=== PATIENT | male | born 1995 | race Caucasian/White ===

== ENCOUNTER 2018-11-23 20:21 | Emergency (ER) | payer SELFPAY ==
[~2018-11-23] VITALS: Ht 188 cm; Wt 79.0 kg
--- NOTE | 2018-11-23 20:42 | NUR ---
ATTEMPTED SI BEFORE WITH A PIECE OF GLASS, NO STITCHES. HE IS HOMELESS. HE JUST GOT OFF A [employer] BUS FROM [place], [place]. HE HAS NO REAL PLANS "I DON'T KNOW THE AREA HERE SO I CAME HERE." STATES HE HAS BEEN HOSPITALIZED FOR 5150 ABOUT 10 TIMES.
--- NOTE | 2018-11-23 21:07 | NUR ---
HE IS ALSEEP.
[2018-11-23 22:22] LABS: BASOPHILS # (AUTO) 0.1 X10'3 (0-0.2); BASOPHILS % (AUTO) 0.9 % (0-1); EOSINOPHILS # (AUTO) 0.3 X10'3 (0-0.9); HEMATOCRIT 38.6 % (42.0-52.0); LYMPHOCYTES # (AUTO) 3.5 X10'3 (1.1-4.8); LYMPHOCYTES % (AUTO) 27.4 % (21-51); MEAN CORPUSCULAR HGB CONC 33.6 g/dL (33.0-36.5); MEAN CORPUSCULAR VOLUME 89.1 FL (78-98); MEAN PLATELET VOLUME 7.4 FL (7.4-10.4); MONOCYTES # (AUTO) 0.8 X10'3 (0-0.9); MONOCYTES % (AUTO) 6.6 % (2-12); NEUTROPHILS % (AUTO) 63.1 % (42-75); PLATELET COUNT 348 X10'3 (140-440); RED BLOOD COUNT 4.33 X10'6 (4.70-6.10); RED CELL DISTRIBUTION WIDTH 13.6 % (11.5-14.5); WHITE BLOOD COUNT 12.6 X10'3 (4.5-11.0)
[2018-11-23 22:33] LABS: URINE AMPHETAMINE SCREEN NEGATIVE (Neg); URINE BARBITUATE SCREEN NEGATIVE (Neg); URINE BENZODIAZEPINES SCREEN NEGATIVE (Neg); URINE CANNABINOID SCREEN POSITIVE (Neg); URINE COCAINE SCREEN NEGATIVE (Neg); URINE METHADONE SCREEN NEGATIVE (Neg); URINE OPIATE SCREEN NEGATIVE (Neg); URINE PHENCYCLIDINE SCREEN NEGATIVE (Neg)
--- NOTE | 2018-11-23 22:34 | NUR ---
employment consultant collecting pt belongings. pt changed into green scrubs. he is cooperative, tired. oriented pt to unit. asked if he has any needs, requests water. will give to pt. he says he is tired
[2018-11-23 22:37] LABS: ALANINE AMINOTRANSFERASE 27 U/L (12-78); ALBUMIN 3.2 G/DL (3.4-5.0); ALBUMIN/GLOBULIN RATIO 0.9 (1.1-1.5); ALKALINE PHOSPHATASE 108 IU/L (46-116); ANION GAP 7 (8-16); ASPARTATE AMINO TRANSFERASE 11 U/L (10-37); BILIRUBIN,TOTAL 0.1 MG/DL (0.1-1.0); BLOOD UREA NITROGEN 16 MG/DL (7-18); BUN/CREATININE RATIO 19.8 (5.4-32.0); CALCIUM 8.4 MG/DL (8.5-10.1); CHLORIDE 106 MMOL/L (99-107); CREATININE 0.81 MG/DL (0.60-1.10); ETHANOL < 0.010 GM/DL (0.0-0.010); GLUCOSE 117 MG/DL (70-104); POTASSIUM 3.9 MMOL/L (3.5-5.1); SODIUM 143 MMOL/L (135-145); TOTAL CARBON DIOXIDE 29.6 MMOL/L (24-32); TOTAL PROTEIN 6.8 G/DL (6.4-8.2); eGFR > 90 ML/MIN
--- NOTE | 2018-11-23 23:25 | NUR ---
pt sleeping on lt side. resp even/unlabored
--- NOTE | 2018-11-24 02:25 | NUR ---
pt continues sleeping on back. resp even/unlabored
--- NOTE | 2018-11-24 05:24 | NUR ---
pt sleeping, snoring at times.
--- NOTE | 2018-11-24 06:00 | NUR ---
pt is currently sleeping
[2018-11-24 06:18] VITALS: BP 121/66
--- NOTE | 2018-11-24 08:00 | NUR ---
pt continues to sleep
--- NOTE | 2018-11-24 08:47 | NUR ---
UPDATED FACESHEET WAS FAXED TO [facility]
--- NOTE | 2018-11-24 09:31 | NUR ---
pt ambulated to the bathroom
--- NOTE | 2018-11-24 11:14 | NUR ---
pt resting in bed
--- NOTE | 2018-11-24 12:52 | NUR ---
pt is sleeping
== END 2018-11-24 13:31 ==
LOC: ER 20:22
DX: F32.9 Major depressive disorder, single episode, unspecified (principal); K08.89 Other specified disorders of teeth and supporting structures; F17.200 Nicotine dependence, unspecified, uncomplicated; F12.90 Cannabis use, unspecified, uncomplicated; F15.90 Other stimulant use, unspecified, uncomplicated
CPT/HCPCS: 36415; 80053; 80305; 80320; 85025; 99284

== ENCOUNTER 2018-11-24 16:08 | Emergency (ER) | payer SELFPAY ==
[~2018-11-24] VITALS: Ht 188 cm; Wt 80.0 kg
[2018-11-24 16:10] VITALS: BP 125/78
[2018-11-24] MEDS ORDERED: OLANZapine 2.5MG tablet PO STA (16:28)
== END 2018-11-24 17:08 | disposition home or self-care (01) ==
LOC: ER 16:09
DX: F32.9 Major depressive disorder, single episode, unspecified (principal); F20.9 Schizophrenia, unspecified; F12.90 Cannabis use, unspecified, uncomplicated; F15.90 Other stimulant use, unspecified, uncomplicated; Z56.0 Unemployment, unspecified; Z59.0 Homelessness; Z88.0 Allergy status to penicillin; Z88.1 Allergy status to other antibiotic agents
CPT/HCPCS: 99284